=== PATIENT | female | born 1990 | race Caucasian/White ===

== ENCOUNTER → 2019-05-26 10:50 | Outpatient (CLI) | payer BC, SELFPAY ==
[2019-05-26 09:48] VITALS: BMI 23.1
[2019-05-26 11:23] LABS: Absolute Lymphocyte Count 3.15 X10^3/uL (0.83-4.51); Absolute Neutrophil Count 7.2 X10^3/uL (2.0-7.7); Basophil# 0.07 X10^3/uL; Basophil% 0.6 % (0-1); Eosinophil# 0.22 X10^3/uL; Hematocrit 41.9 % (37-47); Hemoglobin 14.1 g/dL (12.0-15.0); Lymphocyte # 3.15 X10^3/ul (4.0); Mean Corp Hgb Conc 33.7 g/dL (32-36); Mean Corpuscular Hgb 30.4 pg (27.0-32.0); Mean Corpuscular Volume 90.3 fL (81-99); Mean Platelet Vol. 9.2 fl (6.2-12.0); Monocyte# 0.63 X10^3/uL; Monocyte% 5.6 % (0-10); NRBC Flagged by Analyzer 0 % (0-5); Neutrophil # 7.15 X10^3/uL (2.7-7.7); Neutrophil % 63.5 % (47-70); Platelet Count 238 K/mm3 (150-450); RBC Distribution Width CV 12.9 % (11.6-14.6); RBC Distribution Width SD 42.8 fl (35.1-43.9); Red Blood Count 4.64 M/mm3 (4.2-5.4); White Blood Count 11.3 K/mm3 (4.4-11.0)
[2019-05-26 16:27] LABS: Chlamydia Trachomatis by PCR Negative (Negative); Neisserai gonorrhoeae by PCR Negative (Negative); Probe Check PASS; Sample Adequacy Control PASS; Specimen Processing Control PASS
[2019-05-26 23:33] LABS: HIV - WCH Non-Reactive (Nonreactive); Rubella IgG 68.8 IU/mL
[2019-05-29 13:35] LABS: Rapid Plasmin Reagin (RPR) NONREACTIVE (NONREACTIVE)
== END ==
PROVIDERS: Nurse Practitioner Women's Health; Referring Provider Obstetrics & Gynecology; Visit Provider Obstetrics & Gynecology
DX: Z34.90 Encounter for supervision of normal pregnancy, unspecified, unspecified trimester (principal)
CPT/HCPCS: 36415; 85025; 86592; 86703; 86762; 86850; 86900; 87086; 87088; 87491; 87591

== ENCOUNTER → 2019-08-22 10:06 | Outpatient (CLI) | payer BC, SELFPAY ==
[2019-08-22 09:27] VITALS: BMI 23.1
[2019-08-22 10:19] LABS: Absolute Lymphocyte Count 2.44 X10^3/uL (0.83-4.51); Absolute Neutrophil Count 8.5 X10^3/uL (2.0-7.7); Basophil# 0.05 X10^3/uL; Basophil% 0.4 % (0-1); Eosinophil# 0.23 X10^3/uL; Eosinophils% 1.9 % (0-5); Hematocrit 38.2 % (37-47); Hemoglobin 12.7 g/dL (12.0-15.0); Lymphocyte # 2.44 X10^3/ul (4.0); Lymphocyte % 20.6 % (19-41); Mean Corp Hgb Conc 33.2 g/dL (32-36); Mean Corpuscular Volume 93.2 fL (81-99); Mean Platelet Vol. 9.5 fl (6.2-12.0); Monocyte# 0.65 X10^3/uL; Monocyte% 5.5 % (0-10); NRBC Flagged by Analyzer 0 % (0-5); Neutrophil # 8.45 X10^3/uL (2.7-7.7); Neutrophil % 71.2 % (47-70); Platelet Count 238 K/mm3 (150-450); RBC Distribution Width CV 12.8 % (11.6-14.6); RBC Distribution Width SD 43.3 fl (35.1-43.9); White Blood Count 11.9 K/mm3 (4.4-11.0)
== END ==
PROVIDERS: Referring Provider Obstetrics & Gynecology; Visit Provider Obstetrics & Gynecology
DX: Z34.80 Encounter for supervision of other normal pregnancy, unspecified trimester (principal)
CPT/HCPCS: 36415; 85025; A4216

== ENCOUNTER → 2019-09-19 09:58 | Outpatient (CLI) | payer BC, SELFPAY ==
[2019-09-19 09:22] VITALS: BMI 23.1
[2019-09-19 11:06] LABS: Hepatitis B Surface Antigen Non-Reactive (Nonreactive)
== END ==
PROVIDERS: Referring Provider Obstetrics & Gynecology; Visit Provider Obstetrics & Gynecology
DX: Z34.80 Encounter for supervision of other normal pregnancy, unspecified trimester (principal)
CPT/HCPCS: 36415; 87340

== ENCOUNTER → 2019-10-31 14:18 | Outpatient (CLI) | payer BC, SELFPAY ==
[2019-10-31 09:46] VITALS: BMI 23.1
== END ==
PROVIDERS: Referring Provider Nurse Practitioner Women's Health; Visit Provider Nurse Practitioner Women's Health
DX: Z34.80 Encounter for supervision of other normal pregnancy, unspecified trimester (principal)
CPT/HCPCS: 87081

== ENCOUNTER → 2019-11-10 12:25 | Outpatient (CLI) | payer BC, SELFPAY ==
[2019-11-06 10:20] VITALS: BMI 23.1
--- NOTE | 2019-11-10 12:26 | US_ITS ---
STUDY: SECOND AND THIRD TRIMESTER OBSTETRICAL ULTRASOUND - LIMITED REASON FOR EXAM: Female, 29 years old GROWTH LMP: February 18, 2019. PRIOR ULTRASOUND: None. TECHNIQUE: Transabdominal TECHNICAL QUALITY: Adequate. FINDINGS: There is a single intrauterine fetus. The fetus is in a cephalic presentation. There is demonstrated cardiac activity with a heart rate of 140 bpm. There is a normal amniotic fluid volume. The largest amniotic fluid pocket measures 9.0 cm. The amniotic fluid index (SHAINA) is 17.51 cm. The placenta is fundal in location. There are Grade 2 placental changes. The cervix was not measured due to the head positioning. BIOMETRY: BPD: 8.88 cm: 36 weeks, 0 days HC: 33.34 cm: 36 weeks, 4 days AC: 33.68 cm: 37 weeks, 5 days FL: 7.04 cm: 36 weeks, 1 days Age by LMP: 37 weeks, 6 days. [place] by LMP: November 25, 2019. age by prior US: 36 weeks, 3 days. [place] by prior US: December 05, 2019. age by current US: 36 weeks, 5 days. [place] by current US: December 03, 2019. Estimated weight: 3067 grams, +/- 448 grams, 37 percentile. US/OB Limited With Biometrics IMPRESSION: Single live intrauterine gestation with a mean gestational age of 36 weeks and 3 days. The measurements obtained today fall within the normal expected range. Electronically Signed: Demond George, at 12:45 EST , Service support ,
== END ==
PROVIDERS: Referring Provider Obstetrics & Gynecology; Visit Provider Obstetrics & Gynecology
DX: Z34.93 Encounter for supervision of normal pregnancy, unspecified, third trimester (principal); Z3A.37 37 weeks gestation of pregnancy
CPT/HCPCS: 76816

== ENCOUNTER → 2019-11-21 11:26 | Outpatient (CLI) | payer BC, SELFPAY ==
[2019-11-21 09:26] VITALS: BMI 23.1
[2019-11-21 10:40] VITALS: BMI 23.1
--- NOTE | 2019-11-21 11:27 | US_ITS ---
STUDY: SECOND AND THIRD TRIMESTER OBSTETRICAL ULTRASOUND - LIMITED REASON FOR EXAM: Female, 29 years old SHAINA evaluation. LMP: February 18, 2019. PRIOR ULTRASOUND: Comparison is made with prior study dated November 10, 2019. TECHNIQUE: Transabdominal TECHNICAL QUALITY: Adequate. FINDINGS: There is a single intrauterine fetus. The fetus is in a cephalic presentation. There is demonstrated cardiac activity with a heart rate of 142 bpm. There is a normal amniotic fluid volume. The largest amniotic fluid pocket measures 3.5 cm. The amniotic fluid index (SHAINA) is 10.2 cm. The placenta is fundal in location. There are Grade 3 placental changes. Age by LMP: 39 weeks, 3 days. [place] by LMP: November 25, 2019.. age by prior US: 38 weeks, 2 days. [place] by prior US: December 03, 2019. US/OB Limited (No Biometrics) IMPRESSION: Amniotic fluid index is normal. Electronically Signed: Demond George, at 12:38 EST , Service support ,
== END ==
LOC: US 11:27 → LABSPEC 14:57
PROVIDERS: Referring Provider Physician Assistant Surgical; Visit Provider Physician Assistant Surgical
DX: J02.9 Acute pharyngitis, unspecified (principal)
CPT/HCPCS: 76815; 87070

== ENCOUNTER → 2019-12-02 | Outpatient (CLI) | payer BC, SELFPAY ==
[2019-12-01 10:07] VITALS: BMI 28.7
[2019-12-01 10:39] VITALS: BMI 23.1
--- NOTE | 2019-12-02 14:43 | US_ITS ---
STUDY: SECOND AND THIRD TRIMESTER OBSTETRICAL ULTRASOUND REASON FOR EXAM: Female, 29 years old GROWTH W/BPP -- PT POST DATES LMP: TECHNIQUE: Transabdominal TECHNICAL QUALITY: Adequate. PRIOR ULTRASOUND: None. FINDINGS: There is a single intrauterine fetus. The fetus is in a cephalic presentation. There is demonstrated cardiac activity with a heart rate of 135 bpm. There is a normal amniotic fluid volume. The largest amniotic fluid pocket measures 4.9 cm. The amniotic fluid index (SHAINA) is 9.32 cm. The placenta is fundal There are Grade 3 placental changes. The cervix is not well visualized. The bilateral adnexal regions are nonvisualized BIOMETRY: BPD: 9.15 cm: 37 weeks, 1 days HC: 35.65 cm: 41 weeks, 6 days AC: 35.1 cm: 39 weeks, 1 days FL: 7.53 cm: 38 weeks, 4 days CI: 0.76 FL/BPD: 0.82 FL/HC: FL/AC: 0.21 HC/AC: 1.02 age by current US: 39 weeks, 2 days. [place] by current US: December 07, 2019. Estimated weight: 3647 grams, +/- 532 grams, %. age by prior US: 39 weeks, 6 days. [place] by prior US: December 03, 2019. Age by LMP: weeks, days. [place] by LMP: . ANATOMY: Not studied at this time IMPRESSION: Viable intrauterine gestation approximately 39-40 weeks gestational age No significant change since prior exam Electronically Signed: Harris Blevins MD at 22:55 EST , Service support , STUDY: OBSTETRICAL ULTRASOUND - BIOPHYSICAL PROFILE REASON FOR EXAM: Female, 29 years old GROWTH W/BPP -- PT POST DATES LMP: PRIOR ULTRASOUND: None. TECHNIQUE: Transabdominal TECHNICAL QUALITY: Adequate. FINDINGS: There is a single intrauterine fetus. The fetus is in a cephalic presentation. There is demonstrated cardiac activity with a heart rate of 135 bpm. There is a normal amniotic fluid volume. The largest amniotic fluid pocket measures 4.9 cm. The amniotic fluid index (SHAINA) is 9.32 cm. The placenta is fundal There are Grade 3 placental changes. age by prior US: 39 weeks, 6 days. [place] by prior US: December 03, 2019. age by current US: 39 weeks, 2 days. [place] by current US: December 07, 2019. BIOPHYSICAL PROFILE: Breathing Movements (FBM): 2 Gross Body Movements (GBM): 2 Tone (FT): 2 Amniotic Fluid Volume (AFV): 2 TOTAL SCORE: US/OB Limited With Biometrics IMPRESSION: Normal biophysical profile of 06/05. Electronically Signed: Harris Blevins MD at 22:58 EST , Service support ,
== END | disposition home or self-care (01) ==
LOC: US 14:43
PROVIDERS: Referring Provider Obstetrics & Gynecology; Visit Provider Obstetrics & Gynecology
DX: O48.0 Post-term pregnancy (principal); Z3A.00 Weeks of gestation of pregnancy not specified
CPT/HCPCS: 76816; 76819

== ENCOUNTER 2019-12-09 14:10 | Inpatient (IN) | payer BC, SELFPAY ==
[2019-08-22 09:27] VITALS: BMI 23.1
[2019-12-08 08:08] VITALS: BMI 23.1
[2019-12-09 14:23] VITALS: BMI 28.6
[2019-12-09 14:45] LABS: Absolute Lymphocyte Count 2.35 X10^3/uL (0.83-4.51); Absolute Neutrophil Count 9.7 X10^3/uL (2.0-7.7); Basophil# 0.03 X10^3/uL; Basophil% 0.2 % (0-1); Eosinophil# 0.09 X10^3/uL; Eosinophils% 0.7 % (0-5); Hemoglobin 13.6 g/dL (12.0-15.0); Lymphocyte # 2.35 X10^3/ul (4.0); Mean Corpuscular Hgb 30.8 pg (27.0-32.0); Mean Corpuscular Volume 90.5 fL (81-99); Mean Platelet Vol. 10.7 fl (6.2-12.0); Monocyte# 0.85 X10^3/uL; Monocyte% 6.5 % (0-10); NRBC Flagged by Analyzer 0 % (0-5); Neutrophil # 9.69 X10^3/uL (2.7-7.7); Neutrophil % 74.3 % (47-70); Platelet Count 216 K/mm3 (150-450); RBC Distribution Width CV 12.5 % (11.6-14.6); RBC Distribution Width SD 41.1 fl (35.1-43.9); Red Blood Count 4.42 M/mm3 (4.2-5.4); White Blood Count 13.1 K/mm3 (4.4-11.0)
--- NOTE | 2019-12-09 15:07 | HP.PCM_ITS ---
- Problem List (1) Active labor at term Status: Acute (2) Post-term Status: Acute (3) Status: Acute Qualifiers: Comment: declines carrier, ntd, and genetic screen. Normal anatomy (4) Supervision of other normal Status: Acute Comment: PRR [place] 11/25/19 surprise PC: Edson. Spouse: History and Physical Date of Admission: 12/09/19 Intake Vital Signs 12/08/19 Height 5 ft 8 in 12/08/19 Weight: 191 lb 8 oz 12/08/19 BMI 29.1 12/08/19 BP 124/74 H Intake Visit Reasons: OB EXAM Title I Assistant Required: No Is patient in pain?: No Allergies No Known Allergies Allergy (Verified 12/08/19 08:07) Medications docosahexanoic acid 200 mg capsule mg PO cap 05/26/19 [History Confirmed 12/08/19] Last Menstral Period: 02/18/19 Zika: Zika virus screening: Negative : No PFSH PFS Social History (Updated 12/08/19 @ 11:38 by Maritza Núñez MD) Smoking Status: Never smoker alcohol intake: never substance use type: does not use caffeine: No what type of physical activity do you participate in: aerobics, weight training frequency: daily seatbelt use: always do you feel safe at home: Yes additional social history: Bgmrqii-Bitw-Lgjkwrg 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 Meconium aspiration HPI OB EXAM: Details: KEMAR LUQUE is a 29 year old who presents in active labor at 42 weeks, admits bloody show no lof good fm co reuglar increasing contracitons. OB Visit [place] Calculator Estimated Delivery Date Method Current WG Current Estimate 11/25/19 Ultrasound #1 41w 6d Other Estimates 11/25/19 LMP (Uncertain) 41w 6d Expected Delivery Route/Plan Labor Preferences- labor support person: pain management options preferred: minimal intervention cut cord/dad catch: yes : yes PP control planned: none discussed possible routes of delivery and associated risks: [] special requests: [] Specific Issue/Plans flu vaccine: declined tdap vaccine: declined rhogam: na LARC form signed: declined Problem list reviewed and updated with the most current plan of care details and appropriate orders placed. Relevant counseling for the gestational age provided. Continue routine care and follow up unless otherwise noted in visit notes/problem list details Initial Weight: 150 lb Date EGA Weight BP Urine Prot Glucose FHR FuHt Pres Dilation Effaced St Visit Note 06/24/19 18w 0d 157 lb (+7 lb) 102/70 Negative Negative 150 no vb cramping doing well 07/23/19 22w 1d 164 lb (+14 lb) 90/72 Negative Negative 150 08/22/19 26w 3d 172 lb 6 oz (+22 lb 6 oz) 120/72 Negative Negative 150 26 no vb lof 09/19/19 30w 3d 179 lb (+29 lb) 100/68 Negative Negative 150 30 no vb lof good fm no reg ctx 10/03/19 32w 3d 181 lb (+31 lb) 106/62 Negative Negative 140 31 no vb lof good fm noreg ctx 10/17/19 34w 3d 184 lb 4 oz (+34 lb 4 oz) 110/74 Negative Negative 144 33 Good FM. NO Vb, LOF or CTX 10/31/19 36w 3d 183 lb 4 oz (+33 lb 4 oz) 117/74 Negative Negative 142 35 Good Fm. No VB, LOF. GBS. Declines internal exam 11/06/19 37w 2d 185 lb (+35 lb) 114/68 Negative Negative 145 37 SM- no vb lof good fm no regular ctx 11/14/19 38w 3d 187 lb (+37 lb) 118/68 Negative Negative 140 37 Cephalic SM- no vb lof good fm no regular ctx 11/21/19 39w 3d 188 lb 4 oz (+38 lb 4 oz) 116/76 Negative Negative 140 36 Cephalic SM- no vb lof good fm no regular ctx. SM- no vb lof good fm no regular ctx. recommend us to check bc due to low FH 12/01/19 40w 6d 189 lb (+39 lb) 100/78 Negative Negative 140 37 Cephalic SM- SM- no vb lof good fm no regular ctx discussed exp managmeent recommend bpp growth scan tomorrow, nst fridy and IOL by 42 12/08/19 41w 6d 191 lb 8 oz (+41 lb 8 oz) 124/74 Negative Negative 140 SM SM- no vb lof good fm no regular ctx. SM- no vb lof good fm no regular ctx. bc 9 cm. counseled with patient regarding postterm recommending IOL Notes Visit Date: 12/08/19 ??No visit notes to display Visit Date: 12/01/19 ??No visit notes to display Visit Date: 11/21/19 ??No visit notes to display Visit Date: 11/14/19 ??No visit notes to display Visit Date: 11/06/19 ??No visit notes to display Visit Date: 10/31/19 ??No visit notes to display Visit Date: 10/17/19 ??No visit notes to display Visit Date: 10/03/19 ??no vb lof good fm noreg ctx ??Maritza Núñez MD on 10/03/19 Visit Date: 09/19/19 ??no vb lof good fm no reg ctx ??Maritza Núñez MD on 09/19/19 Visit Date: 08/22/19 ??no vb lof ??Maritza Núñez MD on 08/22/19 Visit Date: 07/23/19 ??No visit notes to display Visit Date: 06/24/19 ??no vb cramping doing well ??Maritza Núñez MD on 06/24/19 ACOG First Trimester First Trimester: Desire for , Alcohol, Tobacco Cessation, Illicit/Recreational Drug/Substance Use, Intimate Partner Violence, Barriers to care, Unstable Housing, Communication Barriers, Environmental/Work Hazards, Anticipated Course of Care, Toxoplasmosis Precations, Use of Any medications, Sexual activity, Exercise, Dental Care, Sauna/Hot tub use, Seat Belt use, Childbirth classes/Hospital facilities, , Travel, Indications for US and Screening for Aneuploidy Second Trimester Second Trimester: Signs and Symptoms of Labor, Selecting a care provider, Reproductive Life Planning, Care Planning, Tobacco Cessation, Depression/Anxiety and Intimate Partner Violence Third Trimester Third Trimester: Pain Management Plans, Labor support person(s), Immediate Larc, Movement Monitoring and Infant Feeding Yes Breastfeed ing; discussed Trial of Labor after Counseling or discussed Circumcision preference Diagnostics Diagnostics Details: HIV: Urine Culture: Sequential Screen: NIPT Screen: ROS Const Reports system reviewed and no additional complaints, except as docu Card Reports system reviewed and no additional complaints, except as docu Resp Reports system reviewed and no additional complaints, except as docu GI Reports system reviewed and no additional complaints, except as docu, Reports nausea Reports system reviewed and no additional complaints, except as docu Musc Reports system reviewed and no additional complaints, except as docu Exam Const General: cooperative, healthy appearing, comfortable, anxious HENMT Head: normal to inspection Nose: external nose normal Face and sinus: normal facial exam Neck Neck: normal visual inspection, full ROM, no lymphadenopathy Thyroid: thyroid normal Chest Chest palpation & inspection: normal inspection of the chest Resp Effort & Inspection: normal respiratory effort GI Inspection: normal to inspection Palpation: soft, other (gravid uterus) Other: vertex and appropriate size for gestational age Other: Cervical Exam: 8/100/0 Extrem General: pedal edema Office Procedures OB NST Non-Stress Test Indications for Monitoring: Yes post term 40+ Heart Rate Baseline: 140 Heart Rate Variability: moderate Movement: Present Heart Rate Accelerations: Present Decelerations: Absent Contractions: Absent Impression: Yes Reactive Non-Stress Test Category 1 Results POC Urinalysis 2 Dip (Clinic) Office Urine Glucose Negative Last Edit by Марина Marinelli on 12/08/19 08:12 Office Urine Protein Negative Last Edit by Марина Marinelli on 12/08/19 08:12 Assessment & Plan Problems 1. Acute pharyngitis, unspecified etiology J02.9 2. 41 weeks gestation of Z3A.41 declines carrier, ntd, and genetic screen. Normal anatomy 3. Supervision of other normal Z34.80 PRR [place] 11/25/19 surprise PC: Edson. Spouse: admit IAL 8 cm doing well Orders Orders: POC Urinalysis 2 Dip (Clinic) Today OB NST Today Z3A.41 Coding Level of Care Code OB Routine Diagnoses Acute pharyngitis, unspecified etiology J02.9 ??Pharyngitis/tonsillitis etiology: unspecified etiology 41 weeks gestation of Z3A.41 ??Weeks of gestation: 41 weeks Supervision of other normal Z34.80 Additional Codes Non-Stress Test (52386)
--- NOTE | 2019-12-09 15:08 | OP.PCM_ITS ---
Problem List (1) Active labor at term Status: Acute (2) Post-term Status: Acute (3) Status: Ruled-out Qualifiers: Comment: declines carrier, ntd, and genetic screen. Normal anatomy (4) Supervision of other normal Status: Acute Comment: PRR [place] 11/25/19 surprise PC: Edson. Spouse: Vaginal Delivery Maternal Presentation: Active Labor ial 42 weeks Amniotic Fluid Description: Clear Final [place]: 11/25/19 Gestational age: 42 Weeks and 2 Days Date of Procedure: 12/09/19 Pre-Operative Diagnosis: ial Post-Operative Diagnosis: same Surgery/ Procedure Performed: Spontaneous Vaginal Delivery Type of Anesthesia: None Description of Procedure: Patient began pushing and delivered the head in the TARA presentation. The head was delivered atraumatically. The anterior and posterior shoulders delivered without complication followed by the rest of the infant and the was placed on the maternal abdomen. Delayed cord clamping was employed for approximately 60 seconds. Cord was clamped and cut and gentle traction was applied to the cord and the placenta delivered spontaneously immediately following it was noted to be intact with three-vessel cord. The perineum and vagina were inspected and noted to have no laceration. Patient and infant tolerated delivery well. Placental Delivery Description: Spontaneous Placenta Disposition: [facility] Cord Vessel Description: 3 Vessels Cord Entanglement: None A gender: Female Episiotomy Description: None Laceration: None Complications: None Multi Select Codes - Urinary/Genital Urinary/Genital CPT Codes: 08080 Vaginal Delivery [facility]
[2019-12-09 20:30] VITALS: BP 118/67; PULSE 83; RESP 16; TEMP 36.8; O2SAT 98
[2019-12-10 00:07] VITALS: BP 103/53; PULSE 68; RESP 16; TEMP 37; O2SAT 97
[2019-12-10 04:10] VITALS: BP 113/69; PULSE 75; RESP 16; TEMP 37.2; O2SAT 95
[2019-12-10] MEDS: Senna/Docusate Sodium 1 Tablet PO (04:19)
[2019-12-10] MEDS: Naproxen 250 MG Tablet 500 MG PO (04:19)
--- NOTE | 2019-12-10 07:58 | PN.OBGYN_ITS ---
Patient Problems: Active and Suspected Problems (Last Reviewed 12/08/19 @ 08:07 by Марина Marinelli) Active labor at term (Acute) Post-term (Acute) Subjective: Doing well, no complaints.Pain controlled. Denies CP, SOB, N,V. Ambulating well, tolerating po. Lochia moderate, going well. - Physical Exam Vitals/I&O's: Vital Signs Temp Pulse Resp BP Pulse Ox 98.9 F 75 16 113/69 95 12/10/19 04:10 12/10/19 04:10 12/10/19 04:10 12/10/19 04:10 12/10/19 04:10 Oxygen Delivery Method Room Air Weight: 188 lb 7.924 oz Body Mass Index (BMI) 28.6 Intake and Output for Last 24 Hours 12/08/19 12/09/19 12/10/19 23:59 23:59 23:59 Output Total 950 / 950 Balance -950 / -950 General: Alert, Oriented x3 Abdomen: Soft, Non Tender, Non-Distended, - - FF below U Laboratory Results 12/09/19 14:30: WBC 13.1 H, RBC 4.42, Hgb 13.6, Hct 40.0, MCV 90.5, MCH 30.8, MCHC 34.0, RDW Std Deviation 41.1, RDW Coeff of Francisca 12.5, Plt Count 216, MPV 10.7, Immature Gran % (Auto) 0.300, Neut % (Auto) 74.3 H, Lymph % (Auto) 18.0 L, O'Brien % (Auto) 6.5, Eos % (Auto) 0.7, Baso % (Auto) 0.2, Absolute Neuts (auto) 9.7 H, Absolute Lymphs (auto) 2.35, Nucleated RBC % 0 12/09/19 14:30: Blood Type B POSITIVE, Antibody Screen NEGATIVE Current Medications Acetaminophen (Tylenol) 1,000 mg PO Q8H PRN PRN PRN Reason: Pain Score 1-3/10 Bisacodyl (Dulcolax) 10 mg RECTAL UD PRN PRN Reason: If no BM Dibucaine (Dibucaine) 1 applic TOPICAL TID PRN PRN; Protocol PRN Reason: Discomfort Hydrocortisone (Hytone) 1 applic TOPICAL TID PRN PRN; Protocol PRN Reason: Discomfort Methylergonovine Maleate (Methergine) 0.2 mg IM X1 PRN PRN Reason: Excess bleeding/uterine atony Naproxen (Naprosyn) 500 mg PO Q8H PRN PRN PRN Reason: Pain Score 1-3/10 Last Admin: 12/10/19 04:19 Dose: 500 mg Documented by: Ondansetron HCl (Zofran) 4 mg IV Q4H PRN PRN PRN Reason: Nausea Oxycodone HCl (Oxyir) 5 - 10 mg PO Q4H PRN PRN PRN Reason: Pain Score 4-10/10 Senna/Docusate Sodium (Senokot-S, Franca-Colace) 1 - 2 tablet PO DAILY PRN PRN PRN Reason: Constipation Last Admin: 12/10/19 04:19 Dose: 2 tablet Documented by: Simethicone (Mylicon) 80 mg PO PCHS PRN PRN Reason: Indigestion/Stomach pain Sodium Chloride () 5 - 15 ml IV UD PRN PRN Reason: SALINE FLUSH Medical Necessity - Tobacco Use Smoking Status: Never smoker Assessment/Plan All Active Problems (Last Reviewed 12/08/19 @ 08:07 by Марина Marinelli) Active labor at term (Acute) Post-term (Acute) Pharyngitis, acute (Acute) (Acute) Supervision of other normal (Acute) s/p PPD # 1 1. routine post delivery care 2. breast feeding- support given 3. rh positive 4. rubella immune 5. home today
--- NOTE | 2019-12-10 08:02 | DCINST_ITS ---
Additional Instructions: If you experience any of the following, contact your healthcare provider. * Bleeding that soaks a pad every hour for 2 hours * Fever 100.4 or higher * Unrelieved incision or abdominal pain * Swelling, redness, discharge or bleeding from your incision or episiotomy site * Your incision begins to separate * Problems urinating (including inability to urinate or burning while urinating). * Visual changes * Severe headache * Flu-like symptoms * Pain or redness in one of both of your breasts * Pain, warmth, tenderness or swelling in your legs, especially the calf area * Frequent nausea and vomiting * Symptoms of depression or anxiety If you experience any of the following, call 911 or go to the nearest Emergency Room. * Chest pain * Problems breathing * Seizure activity * Partial or complete paralysis of a body part, slurred speech, weakness or drooping of the face, or a sudden inability to walk or hold your balance Allergies/Adverse Reactions: Allergies No Known Allergies Allergy (Verified 12/08/19 08:07) Medications to take at Discharge docosahexaenoic acid 200 mg capsule mg PO cap 05/26/19 Vits [Prenatabs FA] 1 tab PO DAILY 12/09/19 Primary Care Physician: Care Physician,No Primary [Primary Care Provider] - Test Results: Test results from this visit will be discussed in further detail at your follow- up appointment, if applicable.
--- NOTE | 2019-12-10 08:02 | PCM.DCVAG ---
Additional Instructions: If you experience any of the following, contact your healthcare provider. Bleeding that soaks a pad every hour for 2 hours Fever 100.4 or higher Unrelieved incision or abdominal pain Swelling, redness, discharge or bleeding from your incision or episiotomy site Your incision begins to separate Problems urinating (including inability to urinate or burning while urinating). Visual changes Severe headache Flu-like symptoms Pain or redness in one of both of your breasts Pain, warmth, tenderness or swelling in your legs, especially the calf area Frequent nausea and vomiting Symptoms of depression or anxiety If you experience any of the following, call 911 or go to the nearest Emergency Room. Chest pain Problems breathing Seizure activity Partial or complete paralysis of a body part, slurred speech, weakness or drooping of the face, or a sudden inability to walk or hold your balance Allergies/Adverse Reactions: Allergies No Known Allergies Allergy (Verified 12/08/19 08:07) Medications to take at Discharge docosahexaenoic acid 200 mg capsule mg PO cap 05/26/19 Vits [Prenatabs FA] 1 tab PO DAILY 12/09/19 Primary Care Physician: Care Physician,No Primary [Primary Care Provider] - Test Results: Test results from this visit will be discussed in further detail at your follow-up appointment, if applicable.
[2019-12-10 08:50] VITALS: BP 120/71; PULSE 90; RESP 16; TEMP 36.8
[2019-12-10 12:38] VITALS: BP 94/51; PULSE 77; RESP 16; TEMP 36.6
[2019-12-10 16:25] VITALS: BP 104/68; PULSE 91; RESP 16; TEMP 36.6
== END 2019-12-10 18:15 | disposition home or self-care (01) | DRG 807 ==
PROVIDERS: Admitting Provider Obstetrics & Gynecology; Referring Provider Obstetrics & Gynecology; Visit Provider Obstetrics & Gynecology
DX: O48.0 Post-term pregnancy (principal); Z37.0 Single live birth; Z3A.42 42 weeks gestation of pregnancy
CPT/HCPCS: 59025; 59050; 85025; 86850; 86900; 86901; 99218; G0378